=== PATIENT | female | born 1945 | race Caucasian/White ===

== ENCOUNTER 2017-05-06 07:57 | Inpatient (IN) | payer MEDICARE, OTHER ==
[2017-04-24 16:15] LABS: BASOPHILS # (AUTO) 0.1 X10'3 (0-0.2); BASOPHILS % (AUTO) 0.6 % (0-1); EOSINOPHILS # (AUTO) 0.1 X10'3 (0-0.9); EOSINOPHILS % (AUTO) 1.2 % (0-6); LYMPHOCYTES # (AUTO) 1.9 X10'3 (1.1-4.8); LYMPHOCYTES % (AUTO) 19.7 % (21-51); MEAN CORPUSCULAR HEMOGLOBIN 30.1 PG (27.0-31.0); MEAN CORPUSCULAR HGB CONC 34.4 % (33.0-36.5); MEAN CORPUSCULAR VOLUME 87.4 FL (78-98); MEAN PLATELET VOLUME 9.6 FL (7.4-10.4); MONOCYTES # (AUTO) 0.5 X10'3 (0-0.9); MONOCYTES % (AUTO) 5.3 % (2-12); NEUTROPHILS # (AUTO) 7.1 X10'3 (1.8-7.7); NEUTROPHILS % (AUTO) 73.2 % (42-75); PRE OP HEMATOCRIT 39.8 % (35.0-45.0); PRE OP HEMOGLOBIN 13.7 g/dL (12.0-16.0); PRE OP PLATELET COUNT 186 X10'3 (140-440); RED BLOOD COUNT 4.55 X10'6 (4.20-5.60); RED CELL DISTRIBUTION WIDTH 13.6 % (11.5-14.5)
[2017-04-24 16:27] LABS: ALBUMIN 3.4 G/DL (3.4-5.0); ALBUMIN/GLOBULIN RATIO 0.9 (1.1-1.5); ALKALINE PHOSPHATASE 98 IU/L (46-116); BLOOD UREA NITROGEN 17 MG/DL (7-18); BUN/CREATININE RATIO 16.7 (6.6-38.0); CALCIUM 9.1 MG/DL (8.5-10.1); CHLORIDE 104 MMOL/L (99-107); CREATININE 1.02 MG/DL (0.40-0.90); PRE OP ALT 24 U/L (30-65); PRE OP ANION GAP 7 (8-16); PRE OP AST 20 U/L (10-37); PRE OP BILIRUB, TOTAL 0.3 MG/DL (0.0-1.0); PRE OP POTASSIUM 3.7 MMOL/L (3.4-5.1); PRE OP SODIUM 139 MMOL/L (135-145); TOTAL CARBON DIOXIDE 28.4 MMOL/L (24-32); TOTAL PROTEIN 7.1 G/DL (6.4-8.2); eGFR 53 ML/MIN
[2017-04-24 16:28] LABS: PRE OP GLUCOSE 210 MG/DL (70-104)
[2017-05-06] VITALS (14 sets, daily range): BP systolic 99–154; BP diastolic 41–77
[~2017-05-06] VITALS: Ht 154.9 cm; Wt 128.4 kg
[~2017-05-06 07:57] MED LIST: ALPR-304 PO; HYDR-3965 PO; INSU3INS2 SQ; LEVO50TA66 PO; LISI-230 PO; ROSU5TAB4 PO; clindamycin-Cleocin 900mg/D5W 50 ML IV ONE; famotidine 20mg tablet PO ONE; ringers solution, lacted 1,000 ML IV SCH; vancomycin inj 1,500 MG in normal saline 300ml IV soln IV ONE
[2017-05-06] MEDS ORDERED: tranexamic acid inj. 1,000 MG in normal saline 100ml IV soln 90 ML IV ONE (15:30)
[2017-05-06] MEDS ORDERED: MORPHINE SULFATE/PF 0.5 MG/ML 10ML AMPUL ONE (15:30)
[2017-05-06] MEDS ORDERED: MIDAZolam 5mg/ml 2ml vial ONE (15:31)
[2017-05-06] MEDS ORDERED: propofol inj 20 ML IV ONE ×5 (16:21→18:19)
[2017-05-06] MEDS ORDERED: epiNEPHrine 1 mg/ml inj ONE (16:21)
[2017-05-06] MEDS ORDERED: ePHEDrine 50MG/ML INJ. ONE (16:21)
[2017-05-06] MEDS ORDERED: naloxone 2mg/2ml inj 2 MG in normal saline 500ml IV soln 500 ML IV PRN (16:28)
[2017-05-06] MEDS ORDERED: ringers solution, lacted 1,000 ML IV SCH (16:28)
[2017-05-06] MEDS ORDERED: morphine 2 MG/ML inj. syringe IV PRN ×2 (16:30)
[2017-05-06] MEDS ORDERED: ondansetron/PF 4mg/2ml inj IV PRN ×2 (16:30)
[2017-05-06] MEDS ORDERED: meperidine/PF 50mg/ml syringe IV PRN ×3 (16:30)
[2017-05-06] MEDS ORDERED: diphenhydrAMINE 50 mg/ml inj IV PRN (16:30)
[2017-05-06] MEDS ORDERED: proCHLORperazine 10 MG/2 ml inj IV PRN (16:30)
[2017-05-06] MEDS ORDERED: dexamethasone 4mg/ml inj ONE (18:54)
[2017-05-06] MEDS ORDERED: cloNIDine hcl/PF 100mcg/ml inj ONE (18:54)
[2017-05-06] MEDS ORDERED: magnesium hydroxide 30ml (MOM) UD suspension PO PRN (19:10)
[2017-05-06] MEDS ORDERED: HYDROmorphone inj. 0.5 MG/0.5 ML DISP.SYRIN IV PRN (19:10)
[2017-05-06] MEDS ORDERED: ALPRAZolam 0.25mg tablet PO PRN (19:10)
[2017-05-06] MEDS ORDERED: diphenhydrAMINE 25mg capsule PO PRN ×2 (19:10)
[2017-05-06] MEDS ORDERED: acetaminophen 325mg tablet PO PRN (19:10)
[2017-05-06] MEDS ORDERED: bisacodyl 10mg suppository rectal RC PRN (19:10)
[2017-05-06] MEDS ORDERED: vancomycin/NS 1 GM ADD-VANTAGE 250 ML IV SCH (20:00)
[2017-05-06] MEDS: sennosides 8.6mg tablet PO SCH (21:00)
[2017-05-06] MEDS: potassium cl 20mEq in 1/2 NS 1,000 ML IV SCH (21:49)
[2017-05-06] MEDS ORDERED: tranexamic acid inj. 1,000 MG in normal saline 100ml IV soln 100 ML IV ONE (22:00)
[2017-05-06] MEDS: HYDROcodone/acetaminophen 10/325mg tab PO PRN (22:09)
[2017-05-07] VITALS (7 sets, daily range): BP systolic 111–141; BP diastolic 51–71
[2017-05-07] MEDS ORDERED: vancomycin/NS 1 GM ADD-VANTAGE 250 ML IV SCH (02:10)
[2017-05-07] MEDS: HYDROcodone/acetaminophen 10/325mg tab PO PRN ×5 (02:17→20:48)
[2017-05-07] MEDS: potassium cl 20mEq in 1/2 NS 1,000 ML IV SCH ×3 (05:07→19:34)
[2017-05-07 06:27] LABS: BASOPHILS % (AUTO) 0.2 % (0-1); EOSINOPHILS # (AUTO) 0.2 X10'3 (0-0.9); EOSINOPHILS % (AUTO) 1.1 % (0-6); HEMATOCRIT 38.1 % (35.0-45.0); HEMOGLOBIN 13.3 g/dl (12.0-16.0); LYMPHOCYTES # (AUTO) 0.5 X10'3 (1.1-4.8); LYMPHOCYTES % (AUTO) 3.6 % (21-51); MEAN CORPUSCULAR HGB CONC 34.8 % (33.0-36.5); MEAN CORPUSCULAR VOLUME 86.4 FL (78-98); MEAN PLATELET VOLUME 9.1 FL (7.4-10.4); MONOCYTES # (AUTO) 0.4 X10'3 (0-0.9); MONOCYTES % (AUTO) 2.9 % (2-12); NEUTROPHILS # (AUTO) 13.7 X10'3 (1.8-7.7); NEUTROPHILS % (AUTO) 92.2 % (42-75); PLATELET COUNT 156 X10'3 (140-440); RED BLOOD COUNT 4.42 X10'6 (4.20-5.60); RED CELL DISTRIBUTION WIDTH 13.7 % (11.5-14.5); WHITE BLOOD COUNT 14.8 X10'3 (4.5-11.0)
[2017-05-07] MEDS ORDERED: dextrose 50%-water 50ml dispensing syringe IV PRN ×2 (06:55)
[2017-05-07] MEDS ORDERED: dextrose ORAL solution 15 GM/59 ML bottle PO PRN ×2 (06:55)
[2017-05-07] MEDS ORDERED: glucagon, human recombinant 1mg kit SUBCUT PRN (06:55)
[2017-05-07] MEDS ORDERED: MESSAGE TO PHARMACY PO ONE (06:55)
[2017-05-07 07:09] LABS: ALANINE AMINOTRANSFERASE 28 U/L (12-78); ALBUMIN 3.1 G/DL (3.4-5.0); ALBUMIN/GLOBULIN RATIO 0.8 (1.1-1.5); ALKALINE PHOSPHATASE 56 IU/L (46-116); ANION GAP 13 (8-16); ASPARTATE AMINO TRANSFERASE 20 U/L (10-37); BILIRUBIN,TOTAL 0.6 MG/DL (0.1-1.0); BLOOD UREA NITROGEN 19 MG/DL (7-18); CALCIUM 8.2 MG/DL (8.5-10.1); CHLORIDE 101 MMOL/L (99-107); GLUCOSE 273 MG/DL (70-104); POTASSIUM 4.5 MMOL/L (3.5-5.1); SODIUM 135 MMOL/L (135-145); TOTAL CARBON DIOXIDE 21.4 MMOL/L (24-32); TOTAL PROTEIN 6.8 G/DL (6.4-8.2); eGFR 54 ML/MIN
[2017-05-07] MEDS: levoTHYROXINE 25mcg tablet PO SCH (07:40)
[2017-05-07] MEDS: lisinopril 10 MG tablet PO SCH (08:17)
[2017-05-07] MEDS: HYDROchlorothiazide 12.5mg capsule PO SCH (08:17)
[2017-05-07] MEDS: enoxaparin 40mg/0.4ml syringe SUBCUT SCH (08:19)
[2017-05-07] MEDS: insulin Lispro (HumaLOG) vial - multi-dose SQ SCH ×3 (09:45→19:43)
[2017-05-07] MEDS ORDERED: mag hydrox/Alum hydrox/simeth 30ml oral suspension PO ONE (17:30)
[2017-05-07] MEDS: ondansetron/PF 4mg/2ml inj IV PRN (19:26)
[2017-05-07] MEDS ORDERED: ALPRAZolam 0.5mg tablet PO PRN (20:25)
[2017-05-07] MEDS: sennosides 8.6mg tablet PO SCH (21:00)
[2017-05-07] MEDS: insulin glargine (Lantus) pen - multi-dose SQ SCH (21:57)
[2017-05-08] MEDS: HYDROcodone/acetaminophen 10/325mg tab PO PRN ×5 (01:01→21:36)
[2017-05-08] MEDS: mag hydrox/Alum hydrox/simeth 30ml oral suspension PO PRN ×2 (01:01→10:14)
[2017-05-08 06:42] LABS: BASOPHILS % (AUTO) 0.2 % (0-1); EOSINOPHILS # (AUTO) 0.2 X10'3 (0-0.9); EOSINOPHILS % (AUTO) 1.5 % (0-6); LYMPHOCYTES # (AUTO) 1.6 X10'3 (1.1-4.8); LYMPHOCYTES % (AUTO) 12.8 % (21-51); MEAN CORPUSCULAR HEMOGLOBIN 29.7 PG (27.0-31.0); MEAN CORPUSCULAR HGB CONC 34.3 % (33.0-36.5); MEAN CORPUSCULAR VOLUME 86.6 FL (78-98); MEAN PLATELET VOLUME 9.4 FL (7.4-10.4); MONOCYTES % (AUTO) 8.4 % (2-12); NEUTROPHILS # (AUTO) 9.4 X10'3 (1.8-7.7); NEUTROPHILS % (AUTO) 77.1 % (42-75); PLATELET COUNT 161 X10'3 (140-440); RED CELL DISTRIBUTION WIDTH 13.9 % (11.5-14.5); WHITE BLOOD COUNT 12.3 X10'3 (4.5-11.0)
[2017-05-08 06:59] VITALS: BP 127/64
[2017-05-08 07:14] LABS: ALANINE AMINOTRANSFERASE 23 U/L (12-78); ALBUMIN 2.6 G/DL (3.4-5.0); ALBUMIN/GLOBULIN RATIO 0.7 (1.1-1.5); ALKALINE PHOSPHATASE 55 IU/L (46-116); ANION GAP 9 (8-16); ASPARTATE AMINO TRANSFERASE 12 U/L (10-37); BILIRUBIN,TOTAL 0.6 MG/DL (0.1-1.0); BLOOD UREA NITROGEN 19 MG/DL (7-18); BUN/CREATININE RATIO 22.9 (6.6-38.0); CALCIUM 7.7 MG/DL (8.5-10.1); CHLORIDE 98 MMOL/L (99-107); CREATININE 0.83 MG/DL (0.40-0.90); GLUCOSE 225 MG/DL (70-104); POTASSIUM 4.1 MMOL/L (3.5-5.1); SODIUM 132 MMOL/L (135-145); TOTAL CARBON DIOXIDE 25.4 MMOL/L (24-32); TOTAL PROTEIN 6.3 G/DL (6.4-8.2); eGFR 67 ML/MIN
[2017-05-08] MEDS: HYDROchlorothiazide 12.5mg capsule PO SCH (07:56)
[2017-05-08] MEDS: enoxaparin 40mg/0.4ml syringe SUBCUT SCH (07:56)
[2017-05-08] MEDS: levoTHYROXINE 25mcg tablet PO SCH (07:56)
[2017-05-08] MEDS: lisinopril 10 MG tablet PO SCH (07:56)
[2017-05-08] MEDS ORDERED: ALPRAZolam 0.25mg tablet PO PRN (08:00)
[2017-05-08] MEDS: insulin Lispro (HumaLOG) vial - multi-dose SQ SCH ×3 (09:12→19:41)
[2017-05-08] MEDS: potassium cl 20mEq in 1/2 NS 1,000 ML IV SCH (11:07)
[2017-05-08 12:26] VITALS: BP 151/66
[2017-05-08 18:00] VITALS: BP 143/65
[2017-05-08] MEDS: sennosides 8.6mg tablet PO SCH (21:35)
[2017-05-08] MEDS: insulin glargine (Lantus) pen - multi-dose SQ SCH (21:41)
[2017-05-08 22:00] VITALS: BP 123/59
[2017-05-09] MEDS: HYDROcodone/acetaminophen 10/325mg tab PO PRN ×2 (05:08→13:25)
[2017-05-09 06:00] VITALS: BP 158/71
[2017-05-09 07:18] LABS: ALANINE AMINOTRANSFERASE 22 U/L (12-78); ALBUMIN 2.6 G/DL (3.4-5.0); ALBUMIN/GLOBULIN RATIO 0.6 (1.1-1.5); ALKALINE PHOSPHATASE 72 IU/L (46-116); ANION GAP 7 (8-16); ASPARTATE AMINO TRANSFERASE 19 U/L (10-37); BILIRUBIN,TOTAL 0.6 MG/DL (0.1-1.0); BLOOD UREA NITROGEN 15 MG/DL (7-18); BUN/CREATININE RATIO 19.5 (6.6-38.0); CALCIUM 8.5 MG/DL (8.5-10.1); CHLORIDE 93 MMOL/L (99-107); CREATININE 0.77 MG/DL (0.40-0.90); GLUCOSE 192 MG/DL (70-104); SODIUM 126 MMOL/L (135-145); TOTAL CARBON DIOXIDE 25.9 MMOL/L (24-32); TOTAL PROTEIN 7.1 G/DL (6.4-8.2); eGFR 73 ML/MIN
[2017-05-09 07:19] LABS: POTASSIUM 4.2 MMOL/L (3.5-5.1)
[2017-05-09] MEDS: enoxaparin 40mg/0.4ml syringe SUBCUT SCH (08:16)
[2017-05-09] MEDS: ondansetron/PF 4mg/2ml inj IV PRN (08:16)
[2017-05-09] MEDS: HYDROchlorothiazide 12.5mg capsule PO SCH (08:17)
[2017-05-09] MEDS: lisinopril 10 MG tablet PO SCH (08:17)
[2017-05-09] MEDS: levoTHYROXINE 25mcg tablet PO SCH (08:17)
[2017-05-09] MEDS: insulin Lispro (HumaLOG) vial - multi-dose SQ SCH (08:26)
[2017-05-09 10:00] VITALS: BP 142/62
[2017-05-09 10:21] LABS: BASOPHILS % (AUTO) 0.2 % (0-1); EOSINOPHILS # (AUTO) 0.2 X10'3 (0-0.9); EOSINOPHILS % (AUTO) 1.6 % (0-6); HEMATOCRIT 32.2 % (35.0-45.0); HEMOGLOBIN 11.2 g/dl (12.0-16.0); LYMPHOCYTES # (AUTO) 1.4 X10'3 (1.1-4.8); LYMPHOCYTES % (AUTO) 9.6 % (21-51); MEAN CORPUSCULAR HEMOGLOBIN 30.2 PG (27.0-31.0); MEAN CORPUSCULAR HGB CONC 34.7 % (33.0-36.5); MEAN CORPUSCULAR VOLUME 86.9 FL (78-98); MEAN PLATELET VOLUME 8.9 FL (7.4-10.4); MONOCYTES # (AUTO) 1.1 X10'3 (0-0.9); MONOCYTES % (AUTO) 7.2 % (2-12); NEUTROPHILS # (AUTO) 12.1 X10'3 (1.8-7.7); NEUTROPHILS % (AUTO) 81.4 % (42-75); RED BLOOD COUNT 3.71 X10'6 (4.20-5.60); RED CELL DISTRIBUTION WIDTH 13.7 % (11.5-14.5); WHITE BLOOD COUNT 14.8 X10'3 (4.5-11.0)
== END 2017-05-09 13:50 | DRG 470 ==
LOC: PAS IN 12:38 → EDSTATUS 15:15 → ORTHO 4S 20:00
PROVIDERS: ADMIT Orthopaedic Surgery; ATTEND Orthopaedic Surgery
PROC: 3E0T3BZ Introduction of Anesthetic Agent into Peripheral Nerves and Plexi, Percutaneous Approach (ICD-10-PCS; 2017-05-06)
PROC: 0SRD0J9 Replacement of Left Knee Joint with Synthetic Substitute, Cemented, Open Approach (ICD-10-PCS; principal; 2017-05-06 15:26)
DX: M17.12 Unilateral primary osteoarthritis, left knee (principal); D62 Acute posthemorrhagic anemia; E11.9 Type 2 diabetes mellitus without complications; Z68.43 Body mass index [BMI] 50.0-59.9, adult; F32.9 Major depressive disorder, single episode, unspecified; E78.5 Hyperlipidemia, unspecified; F41.9 Anxiety disorder, unspecified; G89.29 Other chronic pain; I10 Essential (primary) hypertension; E03.9 Hypothyroidism, unspecified; E66.9 Obesity, unspecified; Z79.899 Other long term (current) drug therapy
CPT/HCPCS: 36415; 80053; 82948; 83036; 85025; 85610; 85730; 86885; 86900; 86901; 86920; 87070; 97110; 97116; 97162; 97530; A6446; A6454; A7000; C1713; C1758; C1776; J0171; J0735; J1100; J1650; J1815; J2250; J2274; J2405; J2704; J3370; J3490; J7030; J7120

== ENCOUNTER 2017-06-07 10:20 | Outpatient (CLI) | payer MEDICARE, OTHER ==
[~2017-06-07 10:20] MED LIST changes: -HYDR-3965 PO; -INSU3INS2 SQ; -ROSU5TAB4 PO; -clindamycin-Cleocin 900mg/D5W 50 ML IV ONE; -famotidine 20mg tablet PO ONE; -ringers solution, lacted 1,000 ML IV SCH; -vancomycin inj 1,500 MG in normal saline 300ml IV soln IV ONE
== END 2017-06-07 23:59 | disposition home or self-care (01) ==
LOC: LAB SPEC 10:20
PROVIDERS: ATTEND Orthopaedic Surgery
DX: T84.9XXD Unspecified complication of internal orthopedic prosthetic device, implant and graft, subsequent encounter (principal); I10 Essential (primary) hypertension; E11.9 Type 2 diabetes mellitus without complications; Z87.891 Personal history of nicotine dependence
CPT/HCPCS: 87070; 87075; 87077; 87186

== ENCOUNTER 2019-06-14 21:06 | Inpatient (IN) | payer MEDICARE, OTHER ==
[~2019-06-14] VITALS: Ht 154.9 cm; Wt 200.9 kg
[2019-06-14] MEDS ORDERED: normal saline 1000ML IV soln IV ONE (21:25)
[2019-06-14] MEDS ORDERED: normal saline 1000ML IV soln IVB ONE (22:15)
[2019-06-14] MEDS ORDERED: insulin regular, human U-100 3ml vial - multi-dose SQ ONE (22:15)
[2019-06-14] MEDS ORDERED: insulin regular, human 10 units/0.1 ml syringe SQ ONE (22:15)
[2019-06-14] MEDS ORDERED: acetaminophen 325mg tablet PO ONE (22:35)
[2019-06-14] MEDS ORDERED: HYDROcodone/acetaminophen 5mg/325mg tablet PO ONE (22:40)
--- NOTE | 2019-06-14 23:01 | NUR ---
pt given norco and tylenol for fever of 102 and pain to bilateral hips (chronic) of 10out of 10. she reports she has prn perscription for norco.
[2019-06-14 23:02] LABS: BASOPHILS % (AUTO) 0.3 % (0-1); EOSINOPHILS % (AUTO) 0.1 % (0-6); HEMATOCRIT 35.6 % (35.0-45.0); HEMOGLOBIN 11.9 g/dl (12.0-16.0); LYMPHOCYTES # (AUTO) 0.5 X10'3 (1.1-4.8); LYMPHOCYTES % (AUTO) 4.3 % (21-51); MEAN CORPUSCULAR HEMOGLOBIN 29.1 PG (27.0-31.0); MEAN CORPUSCULAR HGB CONC 33.5 g/dL (33.0-36.5); MEAN CORPUSCULAR VOLUME 86.8 FL (78-98); MONOCYTES # (AUTO) 0.6 X10'3 (0-0.9); MONOCYTES % (AUTO) 5.4 % (2-12); NEUTROPHILS # (AUTO) 10.5 X10'3 (1.8-7.7); NEUTROPHILS % (AUTO) 89.9 % (42-75); PLATELET COUNT 153 X10'3 (140-440); RED BLOOD COUNT 4.11 X10'6 (4.20-5.60); RED CELL DISTRIBUTION WIDTH 15.3 % (11.5-14.5); WHITE BLOOD COUNT 11.6 X10'3 (4.5-11.0)
[2019-06-14 23:20] LABS: PARTIAL THROMBOPLASTIN TIME 32 SECONDS (22-32)
[2019-06-14 23:25] LABS: ALANINE AMINOTRANSFERASE 14 U/L (12-78); ALBUMIN 2.6 G/DL (3.4-5.0); ALBUMIN/GLOBULIN RATIO 0.7 (1.1-1.5); ALKALINE PHOSPHATASE 117 IU/L (46-116); ANION GAP 6 (8-16); ASPARTATE AMINO TRANSFERASE 13 U/L (10-37); BILIRUBIN,TOTAL 0.6 MG/DL (0.1-1.0); BLOOD UREA NITROGEN 25 MG/DL (7-18); BUN/CREATININE RATIO 20.3 (6.6-38.0); CALCIUM 8.1 MG/DL (8.5-10.1); CHLORIDE 99 MMOL/L (99-107); CREATININE 1.23 MG/DL (0.40-0.90); MAGNESIUM 1.7 MG/DL (1.5-2.4); POTASSIUM 3.2 MMOL/L (3.5-5.1); SODIUM 131 MMOL/L (135-145); TOTAL CARBON DIOXIDE 25.6 MMOL/L (24-32); TOTAL PROTEIN 6.1 G/DL (6.4-8.2); eGFR 43 ML/MIN
[2019-06-14 23:26] LABS: GLUCOSE 483 MG/DL (70-104)
--- NOTE | 2019-06-14 23:28 | NUR ---
1 person assist to bsc. pt voiding and 1 med bm. Unable to collect urine.
--- NOTE | 2019-06-14 23:52 | NUR ---
STRAIGHT CATHED , PT WITH 1300 CC'S URINE OUT. UA SENT. 2ND SET CULTURES DRAWN. 4TH LITER NS BOLUS INFUSING.
[2019-06-15] MEDS ORDERED: azithromycin/NS 500mg/250ml 250 ML IV ONE
[2019-06-15] MEDS ORDERED: CefTRIAXone 2gm/D5W 50ml 50 ML IV ONE
[2019-06-15 00:04] LABS: CLARITY,URINE CLEAR (Clear); COLOR,URINE YELLOW (Yellow); GLUCOSE, URINE >=1000 mg/dl (Neg); KETONES,URINE 15 mg/dl (Neg); LEUKOCYTE ESTERASE ,URINE NEGATIVE (Neg); NITRITES, URINE NEGATIVE (Neg); OCCULT BLOOD,URINE NEGATIVE (Neg); PH,URINE 5.5 (4.8-8.0); PROTEIN,URINE NEGATIVE (Neg); UROBILINOGEN,URINE 0.2 E.U/dL (0.2-1.0)
[2019-06-15 00:28] LABS: UA COLLECTION TYPE STRAIGHT CATH
[2019-06-15 00:29] LABS: WBC,URINE 0-4 /HPF (0-4)
[2019-06-15 00:30] LABS: BACTERIA,URINE NONE SEEN /HPF (Neg); RBC,URINE NONE SEEN /HPF (0-2); SQUAMOUS EPITHELIAL CELL,UR FEW /LPF (FEW)
[2019-06-15] MEDS ORDERED: normal saline 1000ML IV soln IVB ONE (00:30)
[2019-06-15] MEDS ORDERED: ROSU5TAB12 PO (00:58)
[2019-06-15] MEDS ORDERED: HYDR-3968 PO (00:58)
[2019-06-15] MEDS ORDERED: acetaminophen 325mg tablet PO PRN (01:15)
[2019-06-15] MEDS ORDERED: potassium CL 10mEq/100ml bag 100 ML IV PRN ×2 (01:15)
[2019-06-15] MEDS ORDERED: magnesium hydroxide 30ml (MOM) UD suspension PO PRN (01:15)
[2019-06-15] MEDS ORDERED: ondansetron/PF 4mg/2ml inj IV PRN (01:15)
[2019-06-15] MEDS ORDERED: mag hydrox/Alum hydrox/simeth 30ml oral suspension PO PRN (01:15)
[2019-06-15] MEDS ORDERED: potassium Cl 20 mEq SR tablet PO PRN (01:15)
[2019-06-15] MEDS ORDERED: PIOG45TA5 PO (01:17)
[2019-06-15] MEDS ORDERED: ALPRAZolam 0.25mg tablet PO PRN (01:20)
[2019-06-15] MEDS ORDERED: dextrose 50%-water 50ml dispensing syringe IV PRN ×2 (01:20)
[2019-06-15] MEDS ORDERED: glucagon, human recombinant 1mg kit SUBCUT PRN (01:20)
[2019-06-15] MEDS ORDERED: dextrose ORAL solution 15 GM/59 ML bottle PO PRN ×2 (01:20)
[2019-06-15] MEDS ORDERED: MESSAGE TO PHARMACY PO ONE (01:20)
[2019-06-15] MEDS: normal saline 1000ml 1,000 ML IV SCH ×3 (01:49→23:02)
--- NOTE | 2019-06-15 02:40 | NUR ---
Received report from EUFEMIA Loving. Awaiting patient arrival to the floor.
[2019-06-15 03:00] VITALS: BP 102/60
--- NOTE | 2019-06-15 06:10 | NUR ---
Problems reprioritized. Patient report given, questions answered & plan of care reviewed with EUFEMIA Lopez.
[2019-06-15 07:39] VITALS: BP 102/45
[2019-06-15] MEDS: CefTRIAXone/D5W-Rocephin 1gm 50 ML IV SCH (07:49)
[2019-06-15] MEDS: levoTHYROXINE 25mcg tablet PO SCH (07:49)
[2019-06-15] MEDS: atorvastatin 20mg tablet PO SCH (07:49)
[2019-06-15] MEDS: azithromycin 250mg tablet PO SCH (07:50)
[2019-06-15] MEDS: heparin, porcine 5000 units/ml vial SQ SCH ×2 (07:55→19:48)
[2019-06-15] MEDS ORDERED: HYDROchlorothiazide 12.5mg capsule PO SCH (08:00)
[2019-06-15] MEDS: lisinopril 10 MG tablet PO SCH (08:00)
[2019-06-15] MEDS: K and/or MAG REPLACEMENT MC SCH ×2 (08:00→20:00)
[2019-06-15 09:52] LABS: ALANINE AMINOTRANSFERASE 14 U/L (12-78); ALBUMIN 2.7 G/DL (3.4-5.0); ALBUMIN/GLOBULIN RATIO 0.7 (1.1-1.5); ALKALINE PHOSPHATASE 93 IU/L (46-116); ANION GAP 7 (8-16); ASPARTATE AMINO TRANSFERASE 23 U/L (10-37); BILIRUBIN,TOTAL 0.5 MG/DL (0.1-1.0); BLOOD UREA NITROGEN 17 MG/DL (7-18); BUN/CREATININE RATIO 16.7 (6.6-38.0); CALCIUM 8.2 MG/DL (8.5-10.1); CHLORIDE 102 MMOL/L (99-107); CREATININE 1.02 MG/DL (0.40-0.90); GLUCOSE 341 MG/DL (70-104); POTASSIUM 3.6 MMOL/L (3.5-5.1); SODIUM 134 MMOL/L (135-145); TOTAL CARBON DIOXIDE 24.6 MMOL/L (24-32); TOTAL PROTEIN 6.8 G/DL (6.4-8.2); eGFR 53 ML/MIN
[2019-06-15] MEDS: insulin Lispro (HumaLOG) vial - multi-dose SQ SCH ×2 (10:13→13:30)
[2019-06-15] MEDS: HYDROcodone/acetaminophen 10/325mg tab PO PRN (10:14)
[2019-06-15 10:34] LABS: BASOPHILS % (AUTO) 0.3 % (0-1); EOSINOPHILS % (AUTO) 0.3 % (0-6); HEMATOCRIT 32.7 % (35.0-45.0); HEMOGLOBIN 10.8 g/dl (12.0-16.0); LYMPHOCYTES # (AUTO) 1.3 X10'3 (1.1-4.8); MEAN CORPUSCULAR HEMOGLOBIN 28.7 PG (27.0-31.0); MEAN CORPUSCULAR HGB CONC 33.1 g/dL (33.0-36.5); MEAN CORPUSCULAR VOLUME 86.7 FL (78-98); MEAN PLATELET VOLUME 9.1 FL (7.4-10.4); MONOCYTES # (AUTO) 1.1 X10'3 (0-0.9); MONOCYTES % (AUTO) 8.6 % (2-12); NEUTROPHILS # (AUTO) 10.7 X10'3 (1.8-7.7); NEUTROPHILS % (AUTO) 80.8 % (42-75); PLATELET COUNT 135 X10'3 (140-440); RED BLOOD COUNT 3.77 X10'6 (4.20-5.60); RED CELL DISTRIBUTION WIDTH 15.3 % (11.5-14.5); WHITE BLOOD COUNT 13.3 X10'3 (4.5-11.0)
[2019-06-15] MEDS: potassium Cl 20 mEq SR tablet PO PRN (10:53)
[2019-06-15 12:35] VITALS: BP 117/56
--- NOTE | 2019-06-15 16:16 | NUR ---
DM Consult: A1C 10.8. Pt admit sepsis, hyperglycemia GLU 483 now 277, PNA w/ RLL infiltrate per MD. Pt hx losing insulin supported by [employer], em receiving insurance coverage for [address], and has only been taking Actos past 3 weeks changed from insulin r/t pandemic per MD note. Pt current wt 200kg pt stated and no scaled wt this admit; RD d/w RN who reports current wt is accurate given pt presentation. BMI 84; adjusted IBW used to determine nutrition needs. Pt PO 50% avg fluctuated to 75% some meals and RN today reports pt is picky eater. Glucerna TIDWM added given pt protein/kcal needs given DX and current wt; MD notified. LBM 06/13. Pt would benefit from DM ed once stable prior to discharge. Will continue to monitor. Rec: 1. continue carb controlled diet 2. Glucerna TIDWM; monitor for additional protein needs 3. routine bowel care 4. scaled wt for optimal nutrition recs 5. DM ed once stable prior to discharge Addendum: 06/15/19 at [address] Amended: Links added.
[2019-06-15] MEDS ORDERED: NUT.TX.GLUC.INTOLER,LAC-FR,SOY (GLUCERNA) 237 ML PO SCH (18:00)
--- NOTE | 2019-06-15 18:00 | NUR ---
Problems reprioritized. Patient report given, questions answered & plan of care reviewed with Tiara FALL.
--- NOTE | 2019-06-15 18:00 | NUR ---
Patient in room [facility]. I have received report from Jessica FALL and had the opportunity to ask questions and assume patient care.
[2019-06-15] MEDS: lactobacillus rhamnosus 10,000 MMU CELLS/CAPSULE PO SCH (19:43)
[2019-06-15 20:00] VITALS: BP 117/56
[2019-06-15] MEDS: insulin glargine (Lantus) pen - multi-dose SQ SCH (20:11)
[2019-06-16] VITALS: BP 139/68
[2019-06-16] MEDS: HYDROcodone/acetaminophen 10/325mg tab PO PRN ×4 (01:20→23:54)
[2019-06-16 05:04] LABS: BASOPHILS % (AUTO) 0.4 % (0-1); EOSINOPHILS # (AUTO) 0.1 X10'3 (0-0.9); EOSINOPHILS % (AUTO) 1.4 % (0-6); HEMOGLOBIN 10.9 g/dl (12.0-16.0); LYMPHOCYTES # (AUTO) 1.5 X10'3 (1.1-4.8); LYMPHOCYTES % (AUTO) 14.8 % (21-51); MEAN CORPUSCULAR HEMOGLOBIN 29.7 PG (27.0-31.0); MEAN CORPUSCULAR VOLUME 87.4 FL (78-98); MEAN PLATELET VOLUME 9.7 FL (7.4-10.4); MONOCYTES # (AUTO) 0.9 X10'3 (0-0.9); MONOCYTES % (AUTO) 8.6 % (2-12); NEUTROPHILS # (AUTO) 7.5 X10'3 (1.8-7.7); NEUTROPHILS % (AUTO) 74.8 % (42-75); PLATELET COUNT 136 X10'3 (140-440); RED BLOOD COUNT 3.66 X10'6 (4.20-5.60); RED CELL DISTRIBUTION WIDTH 15.3 % (11.5-14.5); WHITE BLOOD COUNT 10.1 X10'3 (4.5-11.0)
[2019-06-16 05:12] LABS: ALANINE AMINOTRANSFERASE 16 U/L (12-78); ALBUMIN 2.2 G/DL (3.4-5.0); ALBUMIN/GLOBULIN RATIO 0.6 (1.1-1.5); ALKALINE PHOSPHATASE 69 IU/L (46-116); ANION GAP 8 (8-16); ASPARTATE AMINO TRANSFERASE 17 U/L (10-37); BILIRUBIN,TOTAL 0.5 MG/DL (0.1-1.0); BLOOD UREA NITROGEN 12 MG/DL (7-18); BUN/CREATININE RATIO 16.4 (6.6-38.0); CALCIUM 8.1 MG/DL (8.5-10.1); CHLORIDE 106 MMOL/L (99-107); CREATININE 0.73 MG/DL (0.40-0.90); GLUCOSE 199 MG/DL (70-104); POTASSIUM 3.4 MMOL/L (3.5-5.1); SODIUM 136 MMOL/L (135-145); TOTAL CARBON DIOXIDE 22.5 MMOL/L (24-32); TOTAL PROTEIN 5.6 G/DL (6.4-8.2); eGFR 78 ML/MIN
--- NOTE | 2019-06-16 06:30 | NUR ---
Problems reprioritized. Patient report given, questions answered & plan of care reviewed with Rafael FALL.
--- NOTE | 2019-06-16 06:32 | NUR ---
Patient in room [facility]. I have received report from EUFEMIA EAGLE and had the opportunity to ask questions and assume patient care.
[2019-06-16] MEDS: potassium Cl 20 mEq SR tablet PO PRN ×3 (07:17→23:53)
[2019-06-16] MEDS: lactobacillus rhamnosus 10,000 MMU CELLS/CAPSULE PO SCH ×2 (07:17→19:43)
[2019-06-16] MEDS: heparin, porcine 5000 units/ml vial SQ SCH ×2 (07:17→19:43)
[2019-06-16] MEDS: atorvastatin 20mg tablet PO SCH (07:17)
[2019-06-16] MEDS: azithromycin 250mg tablet PO SCH (07:18)
[2019-06-16] MEDS: CefTRIAXone/D5W-Rocephin 1gm 50 ML IV SCH (07:18)
[2019-06-16] MEDS: lisinopril 10 MG tablet PO SCH (07:18)
[2019-06-16] MEDS: levoTHYROXINE 25mcg tablet PO SCH (07:18)
[2019-06-16] MEDS: K and/or MAG REPLACEMENT MC SCH ×2 (07:23→20:00)
[2019-06-16 08:00] VITALS: BP 157/77
[2019-06-16] MEDS: normal saline 1000ml 1,000 ML IV SCH ×3 (08:25→19:56)
[2019-06-16] MEDS: insulin Lispro (HumaLOG) vial - multi-dose SQ SCH ×3 (08:25→18:51)
[2019-06-16 11:22] VITALS: BP 97/51
[2019-06-16] MEDS ORDERED: levoFLOXACIN 750MG TABLET PO SCH (11:40)
--- NOTE | 2019-06-16 14:25 | NUR ---
F/u for DM consult: Written protein and DM education with referral to outpatient CDE course and RD contact information placed in patient's chart. Will remain available. Addendum: 06/16/19 at [address] Amended: Links added.
--- NOTE | 2019-06-16 18:39 | NUR ---
Problems reprioritized. Patient report given, questions answered & plan of care reviewed with EUFEMIA EAGLE.
[2019-06-16 20:00] VITALS: BP 128/64
[2019-06-16] MEDS: insulin glargine (Lantus) pen - multi-dose SQ SCH (20:48)
[2019-06-17 00:09] VITALS: BP 164/90
[2019-06-17 01:08] VITALS: BP 139/69
[2019-06-17] MEDS: normal saline 1000ml 1,000 ML IV SCH (05:15)
[2019-06-17 05:23] LABS: BASOPHILS # (AUTO) 0.1 X10'3 (0-0.2); BASOPHILS % (AUTO) 0.6 % (0-1); EOSINOPHILS # (AUTO) 0.1 X10'3 (0-0.9); HEMATOCRIT 36.2 % (35.0-45.0); LYMPHOCYTES # (AUTO) 1.7 X10'3 (1.1-4.8); LYMPHOCYTES % (AUTO) 20.3 % (21-51); MEAN CORPUSCULAR HEMOGLOBIN 28.8 PG (27.0-31.0); MEAN CORPUSCULAR HGB CONC 33.1 g/dL (33.0-36.5); MEAN CORPUSCULAR VOLUME 87.2 FL (78-98); MEAN PLATELET VOLUME 9.5 FL (7.4-10.4); MONOCYTES # (AUTO) 0.8 X10'3 (0-0.9); MONOCYTES % (AUTO) 9.2 % (2-12); NEUTROPHILS # (AUTO) 5.7 X10'3 (1.8-7.7); NEUTROPHILS % (AUTO) 68.9 % (42-75); PLATELET COUNT 162 X10'3 (140-440); RED BLOOD COUNT 4.16 X10'6 (4.20-5.60); RED CELL DISTRIBUTION WIDTH 15.4 % (11.5-14.5); WHITE BLOOD COUNT 8.2 X10'3 (4.5-11.0)
[2019-06-17 05:47] LABS: ALANINE AMINOTRANSFERASE 17 U/L (12-78); ALBUMIN 2.3 G/DL (3.4-5.0); ALBUMIN/GLOBULIN RATIO 0.6 (1.1-1.5); ALKALINE PHOSPHATASE 79 IU/L (46-116); ANION GAP 11 (8-16); ASPARTATE AMINO TRANSFERASE 15 U/L (10-37); BILIRUBIN,TOTAL 0.4 MG/DL (0.1-1.0); BLOOD UREA NITROGEN 10 MG/DL (7-18); BUN/CREATININE RATIO 14.5 (6.6-38.0); CALCIUM 8.3 MG/DL (8.5-10.1); CHLORIDE 107 MMOL/L (99-107); CREATININE 0.69 MG/DL (0.40-0.90); GLUCOSE 195 MG/DL (70-104); POTASSIUM 3.9 MMOL/L (3.5-5.1); SODIUM 139 MMOL/L (135-145); TOTAL CARBON DIOXIDE 20.8 MMOL/L (24-32); eGFR 83 ML/MIN
--- NOTE | 2019-06-17 06:23 | NUR ---
Problems reprioritized. Patient report given, questions answered & plan of care reviewed with Anna FALL.
--- NOTE | 2019-06-17 06:28 | NUR ---
Patient in room [facility]. I have received report from EUFEMIA Menjivar and had the opportunity to ask questions and assume patient care.
[2019-06-17 07:00] VITALS: BP 175/88
[2019-06-17 07:54] VITALS: BP_SYST 175
[2019-06-17] MEDS: lactobacillus rhamnosus 10,000 MMU CELLS/CAPSULE PO SCH (07:54)
[2019-06-17] MEDS: CefTRIAXone/D5W-Rocephin 1gm 50 ML IV SCH (07:54)
[2019-06-17] MEDS: lisinopril 10 MG tablet PO SCH (07:54)
[2019-06-17] MEDS: atorvastatin 20mg tablet PO SCH (07:54)
[2019-06-17] MEDS: azithromycin 250mg tablet PO SCH (07:54)
[2019-06-17] MEDS: heparin, porcine 5000 units/ml vial SQ SCH (07:55)
[2019-06-17] MEDS: levoTHYROXINE 25mcg tablet PO SCH (07:55)
[2019-06-17] MEDS: K and/or MAG REPLACEMENT MC SCH (08:00)
[2019-06-17] MEDS: insulin Lispro (HumaLOG) vial - multi-dose SQ SCH (08:04)
[2019-06-17] MEDS: HYDROcodone/acetaminophen 10/325mg tab PO PRN (08:06)
[2019-06-17] MEDS ORDERED: LEVO75TA7 PO (09:55)
[2019-06-17] MEDS ORDERED: CEFD300C3 PO (09:55)
--- NOTE | 2019-06-17 11:33 | NUR ---
Pt discharged to home with all belongings, in private vehicle, driven by daughter in law. Discharge instructions and medications reviewed. New prescriptions e-scripted to [facility] on [address]. IV DC'd, cannula intact. Pt escorted to front lobby via wheelchair by PCT. Pt instructed to return to ED if symptoms return and to follow up with PCP. Pt states she has an appointment on June 18 with PCP.
== END 2019-06-17 11:27 | disposition home or self-care (01) | DRG 871 ==
LOC: ER 21:06 → ED HOLD 06-15 01:14 → EDBEDREQ 06-15 02:27 → SUR 3N 06-15 02:45
PROVIDERS: ADMIT Internal Medicine; ATTEND Family Medicine
PROC: 5A09357 Assistance with Respiratory Ventilation, Less than 24 Consecutive Hours, Continuous Positive Airway Pressure (ICD-10-PCS; principal; 2019-06-16)
DX: A41.51 Sepsis due to Escherichia coli [E. coli] (principal); J69.0 Pneumonitis due to inhalation of food and vomit; N17.0 Acute kidney failure with tubular necrosis; E87.1 Hypo-osmolality and hyponatremia; Z68.45 Body mass index [BMI] 70 or greater, adult; G89.29 Other chronic pain; E78.00 Pure hypercholesterolemia, unspecified; I10 Essential (primary) hypertension; E66.01 Morbid (severe) obesity due to excess calories; E11.65 Type 2 diabetes mellitus with hyperglycemia; E87.6 Hypokalemia; G47.33 Obstructive sleep apnea (adult) (pediatric); E78.5 Hyperlipidemia, unspecified; R09.02 Hypoxemia; E86.0 Dehydration; E03.9 Hypothyroidism, unspecified; Z79.890 Hormone replacement therapy; Z87.891 Personal history of nicotine dependence; Z88.6 Allergy status to analgesic agent; Z79.4 Long term (current) use of insulin; Z88.1 Allergy status to other antibiotic agents; Z88.5 Allergy status to narcotic agent
CPT/HCPCS: 36415; 71045; 80053; 81001; 81003; 82948; 83036; 83605; 83735; 83880; 84145; 84443; 85025; 85610; 85730; 87040; 87077; 87081; 87186; 93005; 99285; G0378; J0456; J0696; J1644; J1815; J7030

== ENCOUNTER 2021-12-20 09:11 | Emergency (ER) | payer MEDICARE ==
[~2021-12-20] VITALS: Ht 154.9 cm; Wt 126.9 kg
[~2021-12-20 09:11] MED LIST changes: +CEFD300C3 PO; +HYDR-3968 PO; -LEVO50TA66 PO; +LEVO75TA7 PO; +PIOG45TA5 PO; +ROSU5TAB12 PO
--- NOTE | 2021-12-20 10:25 | NUR ---
Bladder scanner: 121ml, 130ml, 93ml. [id number]
[2021-12-20 10:50] LABS: CLARITY,URINE CLOUDY (Clear); COLOR,URINE YELLOW (Yellow); GLUCOSE, URINE 100 mg/dl (Neg); KETONES,URINE NEGATIVE (Neg); LEUKOCYTE ESTERASE ,URINE NEGATIVE (Neg); NITRITES, URINE NEGATIVE (Neg); OCCULT BLOOD,URINE LARGE (Neg); PROTEIN,URINE 100 mg/dl (Neg); UROBILINOGEN,URINE 0.2 E.U/dL (0.2-1.0)
[2021-12-20 10:53] LABS: UA COLLECTION TYPE FOLEY CATH
[2021-12-20 10:56] LABS: MUCUS STRANDS FEW /LPF (Neg); RBC,URINE TNTC /HPF (0-2)
[2021-12-20 10:57] LABS: BACTERIA,URINE 1+ /HPF (Neg)
[2021-12-20 10:58] LABS: SQUAMOUS EPITHELIAL CELL,UR FEW /LPF (FEW)
[2021-12-20 11:35] LABS: BASOPHILS # (AUTO) 0.1 X10'3 (0-0.2); BASOPHILS % (AUTO) 1.2 % (0-1); EOSINOPHILS # (AUTO) 0.1 X10'3 (0-0.9); EOSINOPHILS % (AUTO) 0.8 % (0-6); HEMATOCRIT 40.8 % (35.0-45.0); HEMOGLOBIN 14.1 g/dl (12.0-16.0); LYMPHOCYTES % (AUTO) 19.1 % (21-51); MEAN CORPUSCULAR HEMOGLOBIN 29.4 PG (27.0-31.0); MEAN CORPUSCULAR HGB CONC 34.5 g/dL (33.0-36.5); MEAN PLATELET VOLUME 8.8 FL (7.4-10.4); MONOCYTES # (AUTO) 0.9 X10'3 (0-0.9); MONOCYTES % (AUTO) 8.3 % (2-12); NEUTROPHILS # (AUTO) 7.2 X10'3 (1.8-7.7); NEUTROPHILS % (AUTO) 70.6 % (42-75); PLATELET COUNT 168 X10'3 (140-440); WHITE BLOOD COUNT 10.2 X10'3 (4.5-11.0)
[2021-12-20 11:48] LABS: ALANINE AMINOTRANSFERASE 26 U/L (12-78); ALBUMIN 3.2 G/DL (3.4-5.0); ALBUMIN/GLOBULIN RATIO 0.8 (1.1-1.5); ALKALINE PHOSPHATASE 81 IU/L (46-116); ANION GAP 7 (8-16); ASPARTATE AMINO TRANSFERASE 21 U/L (10-37); BILIRUBIN,TOTAL 0.4 MG/DL (0.1-1.0); BLOOD UREA NITROGEN 12 MG/DL (7-18); BUN/CREATININE RATIO 13.5 (6.6-38.0); CALCIUM 9.9 MG/DL (8.5-10.1); CHLORIDE 102 MMOL/L (99-107); CREATININE 0.89 MG/DL (0.40-0.90); GLUCOSE 205 MG/DL (70-104); SODIUM 138 MMOL/L (135-145); TOTAL CARBON DIOXIDE 28.8 MMOL/L (24-32); eGFR 62 ML/MIN
[2021-12-20 11:53] LABS: POTASSIUM 3.6 MMOL/L (3.5-5.1)
[2021-12-20 12:00] VITALS: BP 139/68
[2021-12-20] MEDS ORDERED: normal saline 500ml IV soln 500 ML IV ONE (12:05)
[2021-12-20] MEDS ORDERED: LEVO750T68 PO (13:51)
--- NOTE | 2021-12-20 14:45 | NUR ---
Pt given and understands d/c instructions. IV d/c'd, catheter was intact. Ambulatory with a cane.
== END 2021-12-20 14:45 | disposition home or self-care (01) ==
LOC: ER 09:12
DX: R31.9 Hematuria, unspecified (principal); N39.0 Urinary tract infection, site not specified; R30.0 Dysuria; E78.00 Pure hypercholesterolemia, unspecified; I10 Essential (primary) hypertension; E11.9 Type 2 diabetes mellitus without complications; Z72.89 Other problems related to lifestyle; Z98.890 Other specified postprocedural states; Z88.1 Allergy status to other antibiotic agents; Z88.5 Allergy status to narcotic agent; Z88.8 Allergy status to other drugs, medicaments and biological substances; Z79.2 Long term (current) use of antibiotics; Z79.899 Other long term (current) drug therapy
CPT/HCPCS: 36415; 51702; 74176; 80053; 81001; 85025; 87088; 99284; J7030; J7040; A4314

== ENCOUNTER 2022-05-09 10:33 | Emergency (ER) | payer MEDICARE ==
[~2022-05-09] VITALS: Ht 152.4 cm; Wt 102.0 kg
[~2022-05-09 10:33] MED LIST changes: -CEFD300C3 PO; +LEVO75CA5 PO; -LEVO75TA7 PO; +NPH,100V SQ; -PIOG45TA5 PO; +ROSU20TA2 PO; -ROSU5TAB12 PO
[2022-05-09 11:41] VITALS: BP 120/61
== END 2022-05-09 13:33 | disposition left against medical advice (07) ==
LOC: ER 10:33
DX: R50.9 Fever, unspecified (principal); Z53.21 Procedure and treatment not carried out due to patient leaving prior to being seen by health care provider
CPT/HCPCS: 82948; 99281

== ENCOUNTER 2022-05-20 13:08 | Emergency (ER) | payer MEDICARE ==
[~2022-05-20] VITALS: Ht 154.9 cm; Wt 122.7 kg
[2022-05-20 13:11] VITALS: BP 154/80
[2022-05-20] MEDS ORDERED: methylnaltrexone br 12mg/0.6ml inj***SubQ only SQ ONE ×2 (15:10→15:15)
[2022-05-20] MEDS ORDERED: lactulose 20gm/30ml cup PO ONE (15:10)
== END 2022-05-20 15:33 | disposition home or self-care (01) ==
LOC: ER 13:08
DX: K59.00 Constipation, unspecified (principal); E78.00 Pure hypercholesterolemia, unspecified; I10 Essential (primary) hypertension; E11.9 Type 2 diabetes mellitus without complications; Z88.6 Allergy status to analgesic agent; Z88.2 Allergy status to sulfonamides; Z88.1 Allergy status to other antibiotic agents; Z88.5 Allergy status to narcotic agent; Z79.899 Other long term (current) drug therapy; Z79.1 Long term (current) use of non-steroidal anti-inflammatories (NSAID); Z79.2 Long term (current) use of antibiotics
CPT/HCPCS: 96372; 99283; J2212

== ENCOUNTER 2022-05-23 08:46 | Emergency (ER) | payer MEDICARE ==
[~2022-05-23] VITALS: Ht 154.9 cm; Wt 120.0 kg
[2022-05-23] MEDS ORDERED: LACT10SO3 PO (12:14)
[2022-05-23] MEDS ORDERED: MAGN296S68 PO (12:14)
[2022-05-23 12:47] VITALS: BP 128/67
== END 2022-05-23 12:49 | disposition home or self-care (01) ==
LOC: ER 08:47
DX: K59.00 Constipation, unspecified (principal); E78.00 Pure hypercholesterolemia, unspecified; I10 Essential (primary) hypertension; E11.9 Type 2 diabetes mellitus without complications; Z88.0 Allergy status to penicillin; Z88.2 Allergy status to sulfonamides; Z88.6 Allergy status to analgesic agent
CPT/HCPCS: 74018; 99285